=== PATIENT | male | born 2000 | race Caucasian/White ===

== ENCOUNTER 2025-03-09 22:44 | Emergency (ER) | payer OTHER ==
[~2025-03-09] VITALS: Ht 175.3 cm; Wt 82.0 kg
[2025-03-09 22:49] VITALS: BP 134/77; PULSE 109; RESP 16; TEMP 37.3; O2SAT 99
== END 2025-03-09 23:21 | disposition left against medical advice (07) ==
LOC: ER 22:44
DX: M25.572 Pain in left ankle and joints of left foot (principal); Z53.21 Procedure and treatment not carried out due to patient leaving prior to being seen by health care provider